=== PATIENT | female | born 1930 | race Caucasian/White ===

== ENCOUNTER 2018-07-29 12:47 | Inpatient (IN) | payer OTHER ==
[~2018-07-29] VITALS: Ht 160 cm; Wt 74.7 kg
[2018-07-29] VITALS (26 sets, daily range): BP systolic 37–133; BP diastolic 10–77; PULSE 80–100; RESP 14–24
--- NOTE | 2018-07-29 12:41 | PREAC ---
Date/Time of Note Date/Time of Note DATE: 07/29/18 TIME: 12:34 Anesthesia Eval and Record Evaluation Time Pre-Procedure Interview DATE: 07/29/18 TIME: 12:34 Age 87 Sex female NPO: Other Preoperative diagnosis emergent ex lap Planned procedure emergency ex lap Past Medical History Past Medical History: Includes Cardio: HTN Pulm: Other (effusions ) Renal: CKD Heme: Anemia Surgery & Anesthesia Issues No known issue Meds Anticoagulation: No Beta Damon within 24 hr: No Reason Beta Damon not given: Pt. not on B-Damon Meds reviewed: Yes Allergies Coded Allergies: aspirin (Verified Allergy, Unknown, 07/26/18) Allergies Reviewed: Yes Labs/Studies Labs Reviewed: Reviewed by anesthesiologist test: N/A Pre-procedure Exam Airway: Adequate mouth opening, Adequate thyromental dist Mallampati: Mallampati IV Teeth: Normal Lung: Normal Heart: Normal ASA Physical Status ASA physical status: 4 Emergency: E Pre-operative Attestations Prior to commencing anesthesia and surgery, the patient was re-evaluated, there was verification of: *The patient's identity *The results of appropriate recent lab work and preoperative vital signs *The above evaluation not changing prior to induction *Anesthetic plan, risk benefits, alternative and complications discussed with patient/family; questions answered; patient/family understands, accepts and wishes to proceed. MAGALI RIZO DO July 29, 2018 12:41
[~2018-07-29 12:47] MED LIST: CEFAZOLIN 1 GM INJ ONE; DESFLURANE 15 MIN ONE; EPHEDrine 50 MG INJ ONE; EPINEPHrine 0.1 MG/ML SYG ONE; ETOMIDATE 20 MG INJ ONE; LIDOCAINE 1% (MDV) 20 ML INJ ONE; MIDAZOLAM 1 MG/ML 2 ML INJ ONE; PHENYLephrine 10 MG INJ ONE; ROCURONIUM 50 MG INJ ONE
--- NOTE | 2018-07-29 13:42 | HPN ---
Date/Time of Note Date/Time of Note DATE: 07/29/18 TIME: 13:41 Interval H&P Admission Note Pt. seen H&P reviewed: Systems changes noted below Patient with purulent discharge to the abdominal wall. CT with multiple collections and free air. White count 35,000. Lactic acid over 4. Patient is septic. Patient needs exploratory laparotomy. Unable to reach primary surgeon. Patient unable to consent. Family is fully aware of her high risk at this time and they are agreeable to proceed with surgery. PAM SOL MD July 29, 2018 13:42
[2018-07-29] MEDS ORDERED: ROPIVACAINE 0.5 % 30 ML VIAL ONE (13:53)
[2018-07-29] MEDS ORDERED: metroNIDAZOLE 500 MG/NS (PMX) 100 ML IVPB ONE (14:28)
[2018-07-29] MEDS ORDERED: PHENYLephrine 10 MG INJ ONE (15:15)
[2018-07-29] MEDS ORDERED: NORepinephrine 4 MG INJ ONE ×2 (15:57→16:05)
[2018-07-29] MEDS ORDERED: ONDANSETRON 4 MG INJ IV PRN (18:00)
[2018-07-29] MEDS ORDERED: morphine 2 MG INJ IV PRN (18:00)
--- NOTE | 2018-07-29 18:02 | OPR ---
Date/Time of Note Date/Time of Note DATE: 07/29/18 TIME: 17:41 Operative Report Procedure Date: July 29, 2018 Preoperative Diagnosis Peritonitis Perfect viscus Sepsis Lactic acidosis Significant leukocytosis Postop day 16 from laparoscopic transverse colectomy for adenocarcinoma by Dr. Chauhan at [place] Postoperative Diagnosis Peritonitis with stool throughout abdomen and significant adhesions and inflammation Anastomotic leak him a significant Sepsis Lactic acidosis Significant leukocytosis since prior to admission Postop day 16 from laparoscopic transverse colectomy for adenocarcinoma by Dr. Chauhan at [place] Generalized oozing from raw surfaces Significantly difficult operation abdominal wall subcu muscle and fascia necrosis Operation/Procedure Performed Exploratory laparotomy with resection of ileal transverse anastomosis and proximal descending colon. End ileostomy Significant lysis of adhesions Multiple repairs of serosal tears Excisional debridement of abdominal wall subcutaneous, muscle, and fascia, 8 x 4 cm Very difficult operation, modifier 22 Surgeon Pam Michaud MD Tinner Automatic Naida Vázquez, RAHDA Second Tinner Automatic: NAIDA MAY Anesthesia Type: general Anesthesiologist: MAGALI RIZO DO Estimated Blood Loss: 250 - 300 ml's Transfusion 4 units of packed red blood cells +3 L crystalloids Urine output: 130 mL's Specimen Anastomosis transfer and proximal colon Grafts/Implants Fibrillar and Dix Tubes/Drains 19 Peruvian Gaurang x2. The right drains the right gutter and perihepatic. 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 She underwent laparoscopic transverse colectomy by Dr. Chauhan on July 13. Postoperatively patient had multiple complications including renal failure pneumonia respiratory failure. Patient apparently had white count of 40,000 prior to being transferred to [place]. White count persisted and CT was obtained identifying free fluid free air. Her lactic acid is over 4. Surgical consultation was obtained and deemed patient septic and decided to proceed emergently to surgery. I had a long discussion with family in terms of possible findings and probable difficult case and the difficult recovery if able to recover. They fully understand and are agreeable to proceed with surgery. Patient was not able to communicate well and decision was made by family. Risks include but are not limited to bleeding, infection, abscess, seroma, leak, damage to intestines or any intra-abdominal/intrapelvic structures, hernia formation, chronic pain, need for re-operations or further surgeries, [place], stroke, PE, DVT, pneumonia, organ failures, or even . Procedure Description Patient was brought in and placed supine on the operating table. She has SCDs. She has Miller. After induction of anesthesia A-line and central lines were placed by the anesthesiologist. Timeout was performed. Preoperative box admini stered. She was prepped and draped in sterile fashion Midline celiotomy was were performed and large amount of feculent fluid was suctioned out. Culture was sent. I continued to open the abdomen and there was significant adhesions of omentum and bowel to the abdominal wall. Abdominal wall at and below the umbilicus had significant necrosis of subcutaneous fascia and muscle. This was debrided sharply. Very meticulous dissection was carried throughout the procedure to separate that the different intestines from each other from the tanner from the spleen from the liver from the stomach. Once again there was significant inflammation and scarring. Abdomen was practically cemented. After significant investigation I identified the anastomosis to have leaked significantly with completely wide open transverse colon anastomotic area. The bowel was very friable. Decision was made to resect the anastomosis and the proximal descending colon. Voyant was used to take the mesentery of the colon and then the small bowel and colon were transected with LEVON blue load 75 staplers. The dissection once once again very difficult and tedious. There was multiple serosal's injuries which were repaired with 3-0 silk Lembert sutures. Small area of the spleen was ripped du ring this dissection due to the high flexion of colon at the splenic flexure. This was controlled with cautery and eventually fibrillar and Dix. Abdomen was irrigated with 6 L of warm saline to clear suctioning fluid. There was oozing from raw surfaces. Bleeding was controlled. 219 Peruvian Gaurang's were placed through bilateral lower quadrants as mentioned above. They were secured with 2-0 nylon. Decision was made to proceed with an end ileostomy. Incision was made in the right upper quadrant and through the rectus and the ileum was exteriorized. Fascia was closed in a running fashion with #1 looped PDS sutures x2. Skin was left open due to the necrotic tissue of the abdominal wall and stool contamination and packed with Betadine soaked Kerlix. Ileostomy was matured with 2-0 silk suture as per usual and customary. Patient was sick throughout the procedure and at one point almost had to be coded. She received 4 units of packed red blood cells and 3 L of crystalloid. She was taken to ICU in guarded condition. PAM MICHAUD MD July 29, 2018 17:52
[2018-07-29] MEDS ORDERED: PIPER-TAZO 2.25 GM (PMX) 50 ML IVPB SCH (18:30)
[2018-07-29] MEDS ORDERED: NA BICARBONATE 8.4% 50 ML SYG IV STA (18:53)
[2018-07-29] MEDS ORDERED: NA BICARBONATE 8.4% 50 ML SYG ONE ×2 (18:54→20:00)
[2018-07-29] MEDS ORDERED: VASOPRESSIN 60 UNIT in DEXTROSE 5% 57 ML IV SCH (19:00)
--- NOTE | 2018-07-29 19:16 | CONS ---
Assessment/Plan Assessment/Plan Hospital Course (Demo Recall) 1. Severe sepsis and shock 2. Non-Hodgkin's lymphoma 3. Respiratory failure status post intubation on the vent 4. Heart block subtle permanent pacemaker 5. Severe metabolic acidosis/lactic acidosis 8. Postop bleeding/anemia 9. Severe coagulopathy and likely DIC 10.ANEMIA 11. thrombocytopenia REC: cont pressors including levophed as needed. post op care as pre surgery transfusion prn. s/p FFP and 4 unit PRBC in OR. Cont vent support . repeat CBC now CXR now abx as per ID REC. BICARB IV prognosis is poor cont ICU care. more than 40 min of critical care time was spent in management and treatment of this critically ill pt excluding any procedure.. thank you. VANNA ROMAN MD Consultation Date/Type/Reason Admit Date/Time Date of Consultation: July 29, 2018 Type of Consult Cardiology Reason for Consultation SHOCK Requesting Provider: RIP MELISSA DO Date/Time of Note DATE: 07/29/18 TIME: 18:52 Hx of Present Illness Interventional cardiology consultation note/critical care note Chief complaint: Status post abdominal surgery. Shock Reason for consult: Shock hypertension history of pacemaker History of present illness: Thank you for this referral. History was obtained from discussion with the family nurse at bedside discussion multiple physician review of the old chart. Patient also very well-known to me from previous admission to [facility] This is a 87-year-old female with multiple complicated medical history who underwent exploratory laparotomy today. Patient is postop in the ICU. Currently hypotensive in shock currently on 2 different pressors. I was kindly asked to evaluate and assist in management Allergies: Aspirin Medications were reviewed as per medical reconciliation sheet Family history: Father with coronary artery disease Social history: Has quit smoking and drinking many years ago. Past medical history: History of Hodgkin lymphoma, anemia, heart block status post [employer] permanent pacemaker, history of hypertension, thyroid disorder hypothyroidism, Patient was recently on July 08, 2018 admitted to outside facility with anemia severe weakness. She has undergone abdominal surgery. Also noted to have pneumonia as well. Review of system: Patient denies all others except for above-mentioned Past Medical History Medications Current Medications Ondansetron HCl (Zofran Inj) 4 mg Q6H PRN IV NAUSEA AND/OR VOMITING; Start 07/29/18 at 18:00 Pantoprazole (Protonix Iv) 40 mg DAILY@06 IV ; Start 07/30/18 at 06:00 Morphine Sulfate (morphine) 2 mg Q4H PRN IV pain 7-10; Start 07/29/18 at 18:00 Piperacillin Sod/ Tazobactam Sod 50 ml @ 100 mls/hr Q6 IVPB ; Start 07/29/18 at 18:30 Vasopressin 60 unit/Dextrose 60 ml @ 1.2 mls/hr Q12H IV ; Start 07/29/18 at 19:00 Phytonadione 10 mg/Dextrose 51 ml @ 102 mls/hr ONCE ONCE IVPB ; Start 07/29/18 at 19:30; Stop 07/29/18 at 19:59 Phytonadione 10 mg/Dextrose 51 ml @ 102 mls/hr ONCE ONCE IVPB ; Start 07/30/18 at 06:00; Stop 07/30/18 at 06:29 Meropenem/Sodium Chloride 50 ml @ 100 mls/hr Q12 IVPB ; Start 07/29/18 at 21:00 Linezolid 300 ml @ 300 mls/hr Q12 IVPB ; Start 07/29/18 at 21:00 Fluconazole/ Sodium Chloride 50 ml @ 50 mls/hr Q24H IVPB ; Start 07/29/18 at 20:00 Allergies: Coded Allergies: aspirin (Verified Allergy, Unknown, 07/26/18) Social History Smoking Status: Never smoker Exam/Review of Systems Vital Signs Vitals Vital Signs Date Temp Pulse Resp B/P (MAP) Pulse Ox O2 O2 Flow FiO2 Time Delivery Rate 07/29/18 91 18:00 07/29/18 97.3 17:55 07/29/18 14 100 100 17:40 07/29/18 133/76 High Flow 12:55 (95) Nasal Cannula Exam Exam General: Status post intubation on the vent HEENT: NC/AT. NECK: Status post central line placement. no stridor. CV: RRR. systolic murmur; no gallop or rubs. PULM: + rhonchi. GI: Status post abdominal surgery with 2 RUSS drainage. She appears to be draining large amount of bloody fluids Extremity: trace B/L LE edema. no clubbing. neuro: Lethargic nonresponsive Psych: Unable to assess rectal: deferred Review of the old chart showed the patient echocardiogram done on July 27, 2018 which was personally reviewed showed: Normal left ventricular systolic function. Normal left ventricular cavity size. Mild asymmetric septal hypertrophy. Ejection fraction is visually estimated at 65 %. Tissue Doppler/Mitral Doppler indices are consistent with impaired relaxation (Stage I diastolic dysfunction). There is mild enlargement of left atrium. Mitral valve is not well visualized. Mild mitral leaflet calcification. Mild mitral annular calcification. Trace mitral regurgitation. Aortic valve not well visualized. Mild to moderate aortic stenosis. Aortic valve Max velocity 2.68 m/sec. Max PG 28.80 mmHg. Mean PG 16.00 mmHg. Aortic valve area 1.05 cm2. Aortic cusps appear moderately calcified. Normal appearance of the tricuspid valve. Tricuspid valve not well visualized. Estimated peak PA systolic pressure 47 mmHg. There is mild tricuspid regurgitation. Normal size and normal respiratory collapse consistent with normal right atrial pressure. Normal pericardium with no significant pericardial effusion. Labs Result Diagram: 07/29/18 1659 07/29/18 1659 Results 24hrs Laboratory Tests Test 07/29/18 16:59 White Blood Count 30.0 H Red Blood Count 2.89 L Hemoglobin 8.2 L Hematocrit 27.2 L Mean Corpuscular Volume 94.1 Mean Corpuscular Hemoglobin 28.4 L Mean Corpuscular Hemoglobin Concent 30.1 L Red Cell Distribution Width 18.6 #H Platelet Count 100 #L Mean Platelet Volume 10.7 H Immature Granulocytes % 13.800 H Neutrophils % Segmented Neutrophils % (Manual) 53 Band Neutrophils % (Manual) 27 H Lymphocytes % Lymphocytes % (Manual) 6 L Reactive Lymphocytes % (Manual) 1 H Monocytes % Monocytes % (Manual) 2 Eosinophils % Basophils % Basophils % (Manual) 1 Metamyelocytes % (manual) 3 H Myelocytes % (Manual) 5 H Promyelocytes % (Manual) 2 H Nucleated Red Blood Cells % 3 H Immature Granulocytes # 4.130 H Neutrophils # Neutrophils # (Manual) 18.3 H Band Neutrophils # 8.1 H Lymphocytes (Manual) 1.8 Lymphocytes # Reactive Lymphocytes # 0.3 H Monocytes # Monocytes # (Manual) 0.6 Eosinophils # Basophils # Basophils # (Manual) 0.3 H Metamyelocytes # 0.9 H Myelocytes # 1.5 H Promyelocytes # 0.6 H Nucleated Red Blood Cells # Platelet Estimate DECREASED Giant Platelets 2 H Polychromasia 3+ Poikilocytosis 3+ Anisocytosis 2+ Microcytosis 2+ CBC Results Faxed/Phoned 1 *H Prothrombin Time 28.4 #H Prothrombin Time Ratio 2.2 INR International Normalized Ratio 2.66 Activated Partial Thromboplast Time 63.4 H Sodium Level 141 Potassium Level 4.7 Chloride Level 115 H Carbon Dioxide Level 11 #L Anion Gap 15 H Blood Urea Nitrogen 46 #H Creatinine 1.42 H Est Glomerular Filtrat Rate mL/min Glucose Level 129 Lactic Acid Level 12.6 *H Calcium Level 7.2 L Troponin I 0.028 Medications Medications Current Medications Ondansetron HCl (Zofran Inj) 4 mg Q6H PRN IV NAUSEA AND/OR VOMITING; Start 07/29/18 at 18:00 Pantoprazole (Protonix Iv) 40 mg DAILY@06 IV ; Start 07/30/18 at 06:00 Morphine Sulfate (morphine) 2 mg Q4H PRN IV pain 7-10; Start 07/29/18 at 18:00 Piperacillin Sod/ Tazobactam Sod 50 ml @ 100 mls/hr Q6 IVPB ; Start 07/29/18 at 18:30 Vasopressin 60 unit/Dextrose 60 ml @ 1.2 mls/hr Q12H IV ; Start 07/29/18 at 19:00 Phytonadione 10 mg/Dextrose 51 ml @ 102 mls/hr ONCE ONCE IVPB ; Start 07/29/18 at 19:30; Stop 07/29/18 at 19:59 Phytonadione 10 mg/Dextrose 51 ml @ 102 mls/hr ONCE ONCE IVPB ; Start 07/30/18 at 06:00; Stop 07/30/18 at 06:29 Meropenem/Sodium Chloride 50 ml @ 100 mls/hr Q12 IVPB ; Start 07/29/18 at 21:00 Linezolid 300 ml @ 300 mls/hr Q12 IVPB ; Start 07/29/18 at 21:00 Fluconazole/ Sodium Chloride 50 ml @ 50 mls/hr Q24H IVPB ; Start 07/29/18 at 20:00 VANNA ROMAN MD July 29, 2018 19:03
[2018-07-29] MEDS ORDERED: PHYTONADIONE 10 MG in DEXTROSE 5% 50 ML IVPB ONE (19:30)
--- NOTE | 2018-07-29 19:40 | PAC ---
Date/Time of Note Date/Time of Note DATE: 07/29/18 TIME: 19:07 Post-Anesthesia Notes Post-Anesthesia Note Last documented vital signs Vital Signs Date Temp Pulse Resp B/P (MAP) Pulse Ox O2 O2 Flow FiO2 Time Delivery Rate 07/29/18 91 18:00 07/29/18 97.3 17:55 07/29/18 14 100 100 17:40 07/29/18 133/76 High Flow 12:55 (95) Nasal Cannula Activity: Other (patient in septic shock: on 20 mcg/min of norepinephrine, intubated on mechanical ventilation) Respiratory function: Other Cardiovascular function: Other Mental status: Other Pain reasonably controlled: Yes Hydration appropriate: Yes Nausea/Vomiting absent: Yes MAGALI RIZO DO July 29, 2018 19:18
[2018-07-29] MEDS ORDERED: NORepinephrine 8MG/250 ML (PMX 250 ML IV SCH (20:00)
[2018-07-29] MEDS ORDERED: AMIODARONE 150 MG INJ ONE (20:00)
[2018-07-29] MEDS ORDERED: FLUCONAZOLE 100 MG/50 ML (PMX) 50 ML IVPB SCH (20:00)
[2018-07-29] MEDS ORDERED: EPINEPHrine 10 MCG/1ml (10 ML SYG) IV ONE (20:00)
[2018-07-29] MEDS ORDERED: CA CHLORIDE 10% 10 ML SYRINGE ONE (20:00)
--- NOTE | 2018-07-29 20:18 | QN ---
Documentation Comment Patient was oozing from many raw surfaces in OR but improved. She is now bleeding more thru the JPs again. INR is 2.6, pls in 90s, lactic acid 12 She is probably in DIC and needs aggressive medical management to optimize her. Surgery will make her worse at this time. All these numbers need to be aggressively corrected: -ffp, -prbc, -platelets, -ca, -mag, -ddavp (renal insufficiency and plt dysfx), -reverse acidosis, -keep warm -follow labs closely Thank you, PAM SOL MD July 29, 2018 20:18
[2018-07-29] MEDS ORDERED: SODIUM BICARBONATE (IV ADD) 100 MEQ in DEXTROSE 5% 1,000 ML IV SCH ×4 (21:00)
[2018-07-29] MEDS ORDERED: MEROPENEM 500MG/50 ML (PMX) 50 ML IVPB SCH (21:00)
[2018-07-29] MEDS ORDERED: LINEZOLID 600 MG/D5W (PMX) 300 ML IVPB SCH (21:00)
[2018-07-29] MEDS ORDERED: PHENYLephrine 40 MG in DEXTROSE 5% 246 ML IV SCH (21:30)
[2018-07-29] MEDS ORDERED: SODIUM BICARBONATE (IV ADD) 150 MEQ in DEXTROSE 5% 1,000 ML IV SCH (22:00)
[2018-07-29] MEDS ORDERED: DOPamine-D5W 1.6 MG/ML 250 ML ONE (22:24)
[2018-07-29] MEDS ORDERED: DOPamine-D5W 1.6 MG/ML 250 ML IV SCH (22:30)
[2018-07-30] VITALS: BP 34/24; PULSE 69; PULSE 72; RESP 14
[2018-07-30 00:15] VITALS: BP 112/98; RESP 0
[2018-07-30] MEDS ORDERED: DEXTROSE 50% 50 ML SYRINGE ONE ×2 (00:15→00:20)
[2018-07-30] MEDS ORDERED: EPINEPHrine 0.1 MG/ML SYG ONE ×2 (00:19→00:20)
[2018-07-30 00:30] VITALS: BP 112/52; PULSE 129; RESP 59
[2018-07-30] MEDS ORDERED: NA BICARBONATE 8.4% 50 ML SYG IV ONE (00:30)
[2018-07-30] MEDS ORDERED: DEXTROSE 50% 50 ML SYRINGE IV ONE (00:30)
[2018-07-30] MEDS ORDERED: CALCIUM GLUCONATE 10% 1 GM in DEXTROSE 5% 100 ML IVPB ONE (00:30)
[2018-07-30] MEDS ORDERED: INSULIN ASPART [NOVOLOG] 3 ML PEN SC ONE (00:30)
[2018-07-30 00:45] VITALS: BP 85/15; PULSE 97; RESP 57
[2018-07-30] MEDS ORDERED: ACCU-CHEK XX ONE (02:30)
--- NOTE | 2018-07-30 04:39 | EN ---
Date/Time of Note Date/Time of Note DATE: 07/30/18 TIME: 04:33 ER Progress Note Significantly difficult operation abdominal wall subcu muscle and fascia necrosis The patient is a 87-year-old female, in ICU, went to cardiac arrest. I was called to evaluate the patient She had peritonitis, sepsis, transverse colectomy for adenocarcinoma postop day 16. She had abdominal surgery today. She is currently on multiple pressors at maximal dose. Potassium was elevated and she was treated aggressively for acute hyperkalemia. It went down from 6.2 to 3.6; however she did not have ROSC She went to PEA then asystole then V. fib when she was defibrillated then asystole then PEA and asystole Please see the CODE BLUE documentation form for detail formation of the resuscitation The CODE BLUE began at 12:14 AM, and ended at 1:13 AM. I have advised the son throughout resuscitation Critical Care: Time: 35 minutes excluding all billable procedures. Treatments/Evaluations: Close monitoring and treatment of unstable vital signs, cardiorespiratory, and neurologic status, while maintaining tight balance of fluid, respiratory, and cardiac interventions. DONTA DUBON MD July 30, 2018 04:39
[2018-07-30] MEDS ORDERED: PANTOPRAZOLE 40 MG INJ IV SCH (06:00)
[2018-07-30] MEDS ORDERED: PHYTONADIONE 10 MG in DEXTROSE 5% 50 ML IVPB ONE (06:00)
--- NOTE | 2018-08-02 07:58 | DES ---
Date/Time of Note Date/Time of Note DATE: 08/02/18 TIME: 07:51 Discharge/ Summary Admission/Discharge Info Admit Date/Time July 29, 2018 at 22:34 Final Diagnosis see below Preliminary Cause of HISTORY OF PRESENT ILLNESS: The patient is an 87-year-old white female admitted to [facility] on 07/06/2018 with weakness and anemia. She was found to have evidence for a cecal adenocarcinoma of the colon and underwent a partial colectomy on 07/23/2018 with a 4 cm mass. She had a complicated po stoperative course including pneumonia and sepsis, urinary tract infection, moderate bilateral pleural effusions, acute kidney injury on chronic kidney disease (peak creatinine of 3.6), and respiratory failure requiring high flow oxygen. She has begun to stabilize and her oxygen requirement apparently is dropped from 80% to 50% prior to transferred to [place] for ongoing care and r ehabilitation. per family, the patient had drainage from abdomen and also had wbc of 40 prior to discharge on exam her drainage was increasing and is becoming more purulent surgery evaluated the patient CT of abdomen was reviewed with radiology she had purulent discharge to the abdominal wall. CT with multiple collections and free air. White count 35,000. Lactic acid over 4. Patient was septic. Patient needed exploratory laparotomy. Unable to reach primary surgeon. Patient unable to consent. Family was fully aware of her high risk at this time and they were agreeable to proceed with surgery. she had Peritonitis Perfect viscus Sepsis Lactic acidosis Significant leukocytosis Postop day 16 from laparoscopic transverse colectomy for adenocarcinoma by Dr. Chauhan at [place] Postoperative Diagnosis Peritonitis with stool throughout abdomen and significant adhesions and inflammation Anastomotic leak him a significant Sepsis Lactic acidosis Significant leukocytosis since prior to admission Postop day 16 from laparoscopic transverse colectomy for adenocarcinoma by Dr. Chauhan at [place] Generalized oozing from raw surfaces Significantly difficult operation abdominal wall subcu muscle and fascia necrosis Operation/Procedure Performed Exploratory laparotomy with resection of ileal transverse anastomosis and proximal descending colon. End ileostomy Significant lysis of adhesions Multiple repairs of serosal tears Excisional debridement of abdominal wall subcutaneous, muscle, and fascia, 8 x 4 cm Very difficult operation, modifier 22 post op the patient remained intubated and on multiple pressors unfortunately despite aggressive care she additional diagnosis: 1. Acute hypoxemic respiratory failure, stable, improving slowly, currently has high flow oxygen requirements. 2. Postop atelectasis with effusions, probably sympathetic and/or fluid overload, doubt current active infection. 3. Status post pneumonia, completing treatment. 4. Status post urinary tract infection, completing treatment. 5. Postoperative partial colectomy for 4 cm cecal adenocarcinoma of the colon. 6. Possible chronic obstructive pulmonary disease with previous cigarette smoking. 7. Hypertension. 8. Dyslipidemia. 9. Diverticulosis. 10. Acute kidney injury on chronic kidney disease. acute component resolved. serum creatinine is now at baseline 11. Hypothyroidism, on replacement. 12. Recent diagnosis of esophagitis. 13. anemia WINIFRED SOL DO August 02, 2018 07:58
--- NOTE | 2018-08-03 07:25 | CONS ---
DATE OF ADMISSION: 07/29/2018 DATE OF CONSULTATION: REQUESTING PHYSICIAN: Chris Sol DO HISTORY OF PRESENT ILLNESS: The patient is an 87-year-old white female who was admitted after having a laparoscopic transverse colectomy for an adenocarcinoma of the transverse colon on 07/13/2018. Th e patient developed renal failure and pneumonia. Subsequently, white count norberto to 40,000. The iram ent was admitted to [facility] and evaluated and was noted to have an acute abdomen , and at surgery, she was found to have a perforated viscus, peritonitis and stool throughout abdomen . The patient was irrigated with 6 liters of saline and that there was an excision of the anastomoti c leak and a small splenic laceration resulted and repaired. The patient was then transferred to the intensive care unit on 07/29/2018. Her white count at that time was 30,000 with 27 bands. Platelet count 100,000. Hemoglobin initially was 8.2 grams and then fell to 6.2 grams. BUN 46, creatinine 1 .42. The patient had lactic acidosis at 12.6. The patient was given antibiotics including Zyvox, me ropenem and Diflucan. She was also given pantoprazole and supported with vasopressin and norepinephr ine and phenylephrine drips. While reviewing the patient's chart, the patient had a cardiac arrest in the ICU and the patient had a prompt and vigorous cardiopulmonary resuscitation applied to her. The patient's resuscitation apparently was unsuccessful before she could be examined by myself or recomm endations made. DIAGNOSES: 1. Septic shock. 2. Lactic acidosis. 3. Perforated anastomotic leak, status post operative transverse colon resection for adenocarcinoma. 4. Peritonitis due to fecal contamination and perforated anastomotic leak. 5. Cardiac arrest. Dictated By: Mehran ZAPATA MD EC/NTS Conf#: [id number] DID#: [id number] CC: CHRIS SOL DO;*EndCC*
== END 2018-07-30 01:13 | disposition expired | DRG 853 ==
LOC: SDS 12:47 → ICU 17:50 → SDS 22:34 → ICU 22:34
PROVIDERS: ADMIT Surgery; ATTEND Surgery
PROC: 0D1B0Z4 Bypass Ileum to Cutaneous, Open Approach (ICD-10-PCS; 2018-07-29)
PROC: 30233N1 Transfusion of Nonautologous Red Blood Cells into Peripheral Vein, Percutaneous Approach (ICD-10-PCS; 2018-07-29)
PROC: 0JB80ZZ Excision of Abdomen Subcutaneous Tissue and Fascia, Open Approach (ICD-10-PCS; principal; 2018-07-29 17:30)
PROC: 0D1L0ZM Bypass Transverse Colon to Descending Colon, Open Approach (ICD-10-PCS; 2018-07-29 17:30)
DX: A41.9 Sepsis, unspecified organism (principal); K65.8 Other peritonitis; R65.21 Severe sepsis with septic shock; K63.1 Perforation of intestine (nontraumatic); D65 Disseminated intravascular coagulation [defibrination syndrome]; C18.4 Malignant neoplasm of transverse colon; I96 Gangrene, not elsewhere classified; S36.039A Unspecified laceration of spleen, initial encounter; K91.89 Other postprocedural complications and disorders of digestive system; I46.9 Cardiac arrest, cause unspecified; E87.5 Hyperkalemia; X58.XXXA Exposure to other specified factors, initial encounter; Y92.234 Operating room of hospital as the place of occurrence of the external cause; Y83.2 Surgical operation with anastomosis, bypass or graft as the cause of abnormal reaction of the patient, or of later complication, without mention of misadventure at the time of the procedure
CPT/HCPCS: 36600; 71045; 80048; 80053; 82803; 82962; 83605; 83735; 84100; 84484; 85025; 85378; 85384; 85610; 85730; 87070; 87075; 87102; 88305; 92950; 94002; 94003; 94770; J0171; J0282; J0610; J0690; J1265; J1450; J1815; J2185; J2250; J2370; J2543; J2795; J3010; J7070